=== PATIENT | female | born 1995 | race Caucasian/White ===

== ENCOUNTER 2022-07-28 16:36 | Emergency (ER) | payer BC ==
[2022-07-28] MEDS ORDERED: SODIUM CHLORIDE 2,000 ML IV STA (17:01)
[2022-07-28 17:12] VITALS: BP 125/83; PULSE 65; RESP 16; TEMP 99.5; BMI 35.4
[2022-07-28 18:14] LABS: HEMOGLOBIN 15.4 G/dL (10.7-15.3); MCH 30.7 pg (25.7-33.7); MCHC 33.5 g/dl (32.0-36.0); MEAN CELL VOLUME 91.6 fl (80-96); MEAN PLT VOLUME 9.4 fl (7.5-11.1); PLATELET COUNT 192.7 10^3/uL (134-434); RBC 5.02 10^6/uL (3.60-5.2); RDW 13.3 % (11.6-15.6); WHITE BLOOD COUNT 8.6 10^3/uL (4.0-10.8)
[2022-07-28 18:32] LABS: BILIRUBIN,TOTAL 0.8 mg/dl (0.2-1); CREATININE 0.9 mg/dl (0.55-1.3); POTASSIUM 4.4 mmol/L (3.5-5.1); TOT PROT 7.2 g/dl (6.4-8.2)
[2022-07-28 18:34] LABS: PLATELET ESTIMATE ADEQUATE
[2022-07-28 21:22] LABS: HCG,QUALITATIVE URINE Negative
[2022-07-28] MEDS ORDERED: CIPROFLOXACIN 500 MG TABLET (RESTRICTED TO ID) PO ONE (21:26)
[2022-07-28] MEDS ORDERED: AZITHROMYCIN 250 MG TABLET PO STA (21:31)
[2022-07-28] MEDS ORDERED: AZITHROMYCIN 500 MG TABLET ONE (21:31)
== END 2022-07-28 21:42 | disposition home or self-care (01) ==
LOC: FER 16:36
PROC: 3E0337Z Introduction of Electrolytic and Water Balance Substance into Peripheral Vein, Percutaneous Approach (ICD-10-PCS; principal; 2022-07-28)
PROC: 3E0337Z Introduction of Electrolytic and Water Balance Substance into Peripheral Vein, Percutaneous Approach (ICD-10-PCS; 2022-07-28)
DX: R19.7 Diarrhea, unspecified (principal); R10.32 Left lower quadrant pain; R11.10 Vomiting, unspecified; E86.0 Dehydration
CPT/HCPCS: 36415; 74177-TC; 80053; 81003; 84703; 85027; 99285-25; Q9967

== ENCOUNTER 2023-04-15 12:11 | Emergency (ER) | payer BC ==
[2023-04-15 12:24] VITALS: BP 124/90; PULSE 91; RESP 18; TEMP 98; BMI 36.6
[2023-04-15] MEDS ORDERED: KETOROLAC TROMETHAMINE 30 MG/1 ML VIAL IM ONE (12:24)
[2023-04-15] MEDS ORDERED: KETOROLAC TROMETHAMINE 30 MG/1 ML VIAL ONE (12:26)
== END 2023-04-15 12:56 | disposition home or self-care (01) ==
LOC: FER 12:11
PROC: 3E0233Z Introduction of Anti-inflammatory into Muscle, Percutaneous Approach (ICD-10-PCS; principal; 2023-04-15)
DX: M54.50 Low back pain, unspecified (principal); S39.012A Strain of muscle, fascia and tendon of lower back, initial encounter; X58.XXXA Exposure to other specified factors, initial encounter
CPT/HCPCS: 81025; 99284-25